=== PATIENT | female | born 1990 | race African-American/Black ===

== ENCOUNTER 2016-11-30 23:11 | Emergency (ER) | payer BC ==
[2016-11-30] MEDS ORDERED: Amoxicillin/Clavulanate TAB* 500 MG PO ONE (23:40)
--- NOTE | 2016-11-30 23:42 | ED ---
Throat Pain/Nasal Congestion - HPI Summary HPI Summary: 26 F w/ PMH of chronic sinusitis presents with worsening sinus congestion for 3 days. She is taking internasal steroids for this and claritin. She has been seen by two different ENT specialist and they said the only treatment for her surgery. She has been on multiple antibiotics without relief. She says she has an issue like this for a year and a half. She says that she has to focus on breathing throughout the day because she can not breath through her nose. She says it is worst at nigh. She has had multiple CT for this issue. - History of Current Complaint Chief Complaint: EDUpperRespComplaint Time Seen by Provider: 11/30/16 23:21 PMH/Surg Hx/FS Hx/Imm Hx Cardiovascular History: Denies: Hx Hypertension Respiratory History: Denies: Hx Asthma EENT History: Reports: Other - chronic sinusitis Infectious Disease History: Denies: Traveled Outside the [place] in Last 30 Days - Family History Known Family History: Negative: Cardiac Disease - Social History Alcohol Use: Occasionally Substance Use Type: Reports: None Smoking Status (MU): Never Smoked Tobacco Review of Systems Negative: Fever Positive: Nasal Discharge Negative: Chest Pain Negative: Shortness Of Breath All Other Systems Reviewed And Are Negative: Yes Physical Exam Triage Information Reviewed: Yes Vital Signs On Initial Exam: Initial Vitals Temp Pulse Resp BP Pulse Ox 98.3 F 81 14 137/87 98 11/30/16 23:30 11/30/16 23:30 11/30/16 23:30 11/30/16 23:30 11/30/16 23:30 Vital Signs Reviewed: Yes Appearance: Positive: Well-Appearing Skin: Positive: Warm, Dry Head/Face: Positive: Normal Head/Face Inspection Eyes: Positive: Normal, Conjunctiva Clear ENT: Positive: Normal ENT inspection, Pharynx normal, Nasal congestion, Nasal drainage, TMs normal, Other - sinus tenderness to frontal sinus Respiratory/Lung Sounds: Positive: Clear to Auscultation, Breath Sounds Present Cardiovascular: Positive: Normal Diagnostics - Vital Signs Vital Signs Temp Pulse Resp BP Pulse Ox 11/30/16 23:30 98.3 F 81 14 137/87 98 - Laboratory Lab Statement: Any lab studies that have been ordered have been reviewed, and results considered in the medical decision making process. EENT Course/Dx - Course Course Of Treatment: 26F presents with exacerbation of chronic sinusitis for 3 days, has been using internasal steroids and saline spray, ENT told needs surgery, discussed options with patient and patient would like to try course of antibiotic and will given referral for ENT, patient agrees with plan - Differential Diagnoses Differential Diagnoses: Allergic Rhinitis, Sinusitis, URI/Bronchitis - Diagnoses Provider Diagnoses: Chronic sinusitis Discharge - Discharge Plan Condition: Good Disposition: HOME Prescriptions: Amoxicillin/Clavulanate TAB* [Augmentin TAB 500 mg*] 500 mg PO BID #19 tab Patient Education Materials: Sinusitis (ED) Referrals: Grayson Trevino MD [Medical Doctor] - Additional Instructions: Follow up with ENT to discuss options Take antibiotic twice a day for 10 days Use saline spray in nose as much as needed Use humidifier in room Use intranasal steroid one spray each nostril twice a day Take Tylenol or ibuprofen for headache every 6 hours Follow up with primary in 5 days if no improvement Return to ED if develop any new or worsening symptoms
[2016-11-30 23:56] VITALS: BP 129/81
== END 2016-12-01 00:02 | disposition home or self-care (01) ==
LOC: ED 23:11
DX: J32.9 Chronic sinusitis, unspecified (principal)
CPT/HCPCS: 99282; A9270-GY